=== PATIENT | male | born 1965 | race Caucasian/White ===

== ENCOUNTER → 2016-09-10 | Outpatient (CLI) | payer OTHER | LOC: CAT 17:08 | DX: Z13.6 Encounter for screening for cardiovascular disorders (principal) ==

== ENCOUNTER → 2017-05-18 | Outpatient (CLI) | payer OTHER ==
--- NOTE | ~2017-05-18 | PFR/MVV ---
[facility] [place] [address] PULMONARY FUNCTION MVV/REPORT Name: SOLMIGUEL Room #: REG DOROTHY Fairbanks.#: [id number] Admission: 05/18/17 Attend Phys: Fred Gleason MD Discharge: Date of : 63 Report #: [id number] THIS REPORT FOR: //name// COPIES FOR: AGE: 51 SEX/RACE: M/C >> SPIROMETRY: (BTPS) Height: 67.0 in cm Weight: 175 lbs kg Exam Date: 05/18/17 PRE-RX POST-RX PRED BEST %PRED BEST %PRED %CHG FVC LITERS . 4.02 . 3.20 . 80 . 3.06 . 76 . -5 FEV1 LITERS . 3.27 . 2.63 . 80 . 2.58 . 79 . -2 FEV1/FVC % . 82 . 82 . 101 . 84 . 103 . 3 NRG87-04% L/Sec . 3.44 . 3.41 . 99 . 3.44 . 100 . 1 PEF L/SEC . 8.18 . 7.55 . 92 . 6.15 . 75 . -19 FEF50/FIF50 UNITLESS . <1.00 . 1.84 . . 3.90 . . 112 MVV L/Min . 140 . 116 . 83 f 1/Min . . 90 . >> LUNG VOLUMES: (BTPS) PRE-RX POST-RX PRED AVG %PRED AVG %PRED %CHG VC Liters . 4.02 . 3.33 . 83 . . . TLC Liters . 6.06 . 4.12 . 68 . . . RV Liters . 2.03 . 0.79 . 39 . . . RV/TLC % . 35 . 19 . 56 . . . FRC PL Liters . 3.27 . 1.04 . 32 . . . FRC N2 Liters . 3.27 . . . . . ERV Liters . . 0.25 . . . . IC Liters . . 3.10 . . . . >> DIFFUSION: DLCO ml/Min/mmHg . 24.0 . 20.7 . 86 . . . DL Nohemy ml/Min/mmHg . 24.0 . 20.7 . 86 . . . DLCO/VA ml/Min/mmHg . 3.96 . 4.89 . 124 . . . VA Liters . . 4.23 . . . . [facility] [address] [place] [address] PULMONARY FUNCTION MVV/REPORT Name: MIGUEL SOL Room #: [facility].#: [id number] Admission: 05/18/17 Attend Phys: Fred Gleason MD Discharge: Date of : 63 Report #: [id number] COMMENTS: COMMENTS: >> RESISTANCE: PRE-RX PRED AVG %PRED Raw Total cmH20/L/Sec . . 3.57 . Raw Insp cmH20/L/Sec . . 3.98 . Raw Exp cmH20/L/Sec . . 4.33 . Raw cmH20/L/Sec . 1.40 . 2.08 . 148 Gaw L/Sec/cmH20 . 0.785 . 0.481 . 61 sRaw cmH20 Sec . 4.59 . 5.10 . 111 sGaw l/cmH20 Sec . 0.218 . 0.196 . 90 Vtq Liters . . 2.45 . # = OUTSIDE 95% CONFIDENCE INTERVAL CALIBRATION: PRED: 3.00 ACTUAL: EXP 3.01 INSP 3.02 [facility]-OL10-06 [facility]- N-1804-4 >> INTERPRETATION/IMPRESSION: CC: Fred Gleason MD PULMONARY FUNCTION TEST Spirometry examination shows mildly reduced flows. There was no significant bronchodilator response. Lung volumes are mildly reduced. Diffusion capacity is normal, corrected for alveolar volume. Flow volume loop is normal. IMPRESSION: Mild restrictive ventilatory defect. Clinical correlation suggested. <ELECTRONICALLY SIGNED> By: Thompson Murray MD 07/03/17 1407 Thompson Murray MD /nt
== END ==
LOC: PUL 10:48
DX: R06.00 Dyspnea, unspecified (principal)

== ENCOUNTER → 2021-05-01 | Outpatient (CLI) | payer OTHER | LOC: CAT 08:08 | PROVIDERS: ATTEND Family Medicine | DX: Z13.6 Encounter for screening for cardiovascular disorders (principal); I25.10 Atherosclerotic heart disease of native coronary artery without angina pectoris; E78.00 Pure hypercholesterolemia, unspecified ==

== ENCOUNTER → 2021-05-02 | Outpatient (CLI) | payer OTHER ==
--- NOTE | ~2021-05-02 | PFR/MVV ---
[facility] [place] [address] PULMONARY FUNCTION MVV/REPORT Name: SWETAMIGUEL Room #: REG DOROTHY [place].#: [id number] Admission: 05/02/21 Attend Phys: Fred Gleason MD Discharge: Date of : 63 Report #: [id number] THIS REPORT FOR: //name// >> SPIROMETRY: (BTPS) Height: 67 in cm Weight: 192 lbs kg Exam Date: 05/02/21 PRE-RX POST-RX PRED BEST %PRED BEST %PRED %CHG FVC LITERS . 4.28 . 3.23 . 76 . 3.36 . 79 . 4 FEV1 LITERS . 3.11 . 2.72 . 87 . 2.89 . 93 . 6 FEV1/FVC % . 73 . 84 . 116 . 86 . 118 . 2 BXO49-03% L/Sec . 3.14 . 3.62 . 115 . 4.47 . 142 . 23 PEF L/SEC . 8.04 . 10.21 . 127 . 9.13 . 114 . -11 FEF50/FIF50 UNITLESS . 4.04 . 5.31 . 132 . 6.94 . 172 . 31 MVV L/Min . 135 . 97 . 72 f 1/Min . . . >> LUNG VOLUMES: (BTPS) PRE-RX POST-RX PRED AVG %PRED AVG %PRED %CHG VC Liters . 4.28 . 3.25 . 76 . . . TLC Liters . 6.00 . 8.40 . 140 . . . RV Liters . 2.10 . 5.15 . 246 . . . RV/TLC % . 36 . 61 . 171 . . . FRC PL Liters . 3.13 . 5.336 . 171 . . . FRC N2 Liters . 3.13 . . . . . ERV Liters . 1.44 . 0.15 . 10 . . . IC Liters . 2.87 . 3.04 . 106 . . . >> DIFFUSION: DLCO ml/Min/mmHg . 24.3 . 26.1 . 108 . . . DL Nohemy ml/Min/mmHg . 24.3 . 26.1 . 108 . . . DLCO/VA ml/Min/mmHg . 3.92 . 6.21 . 157 . . . VA Liters . 6.50 . 4.21 . 65 . . . COMMENTS: COMMENTS: >> RESISTANCE: [facility] [address] [place] [address] PULMONARY FUNCTION MVV/REPORT Name: MIGUEL SOL Room #: [facility] Magdi.#: [id number] Admission: 05/02/21 Attend Phys: Fred Gleason MD Discharge: Date of : 63 Report #: [id number] PRE-RX PRED AVG %PRED Raw Total cmH20/L/Sec . . 3.13 . Raw Insp cmH20/L/Sec . . 4.28 . Raw Exp cmH20/L/Sec . . 4.66 . Raw cmH20/L/Sec . 1.49 . 1.29 . 87 Gaw L/Sec/cmH20 . 0.752 . 0.775 . 103 sRaw cmH20 Sec . 4.65 . 9.07 . 195 sGaw l/cmH20 Sec . 0.215 . 0.110 . 51 Vtq Liters . . 7.02 . # = OUTSIDE 95% CONFIDENCE INTERVAL CALIBRATION: PRED: 3.00 ACTUAL: EXP 3.01 INSP 3.02 [facility]-OL10-06 [facility]-05 N-1804-4 >> INTERPRETATION/IMPRESSION: PULMONARY FUNCTION STUDY SPIROMETRY: FEV1 is 3.72 liters (87% predicted), FVC is 3.23 liters (76% predicted), FEV1/FVC ratio is 84%. There is no significant response to bronchodilator therapy. LUNG VOLUMES: Total lung capacity is 8.40 liters (140% predicted). RV is 5.15 liters (246% predicted). Diffusing capacity is 108%. IMPRESSION: There is no official interpretation of pulmonary function studies. The patient is noted to be coughing throughout the duration of the test and unable to adequately perform the test consistently, meeting ATS criteria. It does appear like that there is a mixed obstructive and restrictive airflow defect. There is no significant response to bronchodilator therapy. Lungs, there is no significant obstructive component. There is evidence of hyperinflation and air trapping. Diffusing capacity is normal. By: Carlito Chavez MD /nt
== END ==
LOC: PUL 07:16
PROVIDERS: ATTEND Family Medicine
DX: J98.11 Atelectasis (principal); J98.4 Other disorders of lung; Z20.822 Contact with and (suspected) exposure to COVID-19